=== PATIENT | male | born 1995 | race Caucasian/White ===

== ENCOUNTER 2016-12-15 10:12 | Emergency (ER) | payer BC ==
[~2016-12-15] VITALS: Ht 190.5 cm; Wt 81.6 kg
[~2016-12-15 10:12] MED LIST: VICO5TAB
[2016-12-15] MEDS ORDERED: KETOROLAC 30 MG/ML VIAL (J1885) IV ONE (11:00)
[2016-12-15] MEDS ORDERED: ONDANSETRON 4MG/2ML VIAL (J2405) IV ONE (11:00)
[2016-12-15] MEDS ORDERED: NS 1,000 ML IV ONE (11:15)
[2016-12-15 11:39] LABS: BASO % 0.1 % (0.0-1.0); EOS # 0.1 K/mm3 (0.0-0.50); EOS % 0.6 % (0.0-3.0); LARGE UNSTAINED CELL # 0.1 K/mm3 (0.0-0.4); LARGE UNSTAINED CELL % 0.5 % (0.0-4.0); LYMPH # 0.8 K/mm3 (1.5-6.5); LYMPH % 7.5 % (24.0-44.0); MEAN CORPUSCULAR HEMOGLOBIN 31.1 pg (27.0-33.0); MEAN CORPUSCULAR HGB CONC 34.7 g/dl (32.0-36.5); MEAN CORPUSCULAR VOLUME 89.8 fl (80.0-96.0); MONO # 0.3 K/mm3 (0.0-0.8); MONO % 3.1 % (0.0-5.0); NEUTROPHILS # 9.6 K/mm3 (1.8-7.7); NEUTROPHILS % 88.1 % (36.0-66.0); PLATELET COUNT, AUTOMATED 210 k/mm3 (150-450); RED CELL DISTRIBUTION WIDTH 12.4 % (11.5-14.5); WHITE BLOOD COUNT 10.9 K/mm3 (4.0-10.0)
[2016-12-15 12:10] LABS: ANION GAP 9 MEQ/L (8-16); BLOOD UREA NITROGEN 16 MG/DL (7-18); CALCIUM LEVEL 9.8 MG/DL (8.5-10.1); CARBON DIOXIDE LEVEL 29 MEQ/L (21-32); CHLORIDE LEVEL 103 MEQ/L (98-107); CREATININE FOR GFR 1.08 MG/DL (0.70-1.30); GLOMERULAR FILTRATION RATE > 60.0 (>60); GLUCOSE, FASTING 114 MG/DL (70-105); POTASSIUM SERUM 3.7 MEQ/L (3.5-5.1); SODIUM LEVEL 141 MEQ/L (136-145)
[2016-12-15] MEDS ORDERED: FLOM5CAP PO (12:50)
[2016-12-15] MEDS ORDERED: NORCOTAB PO (12:50)
[2016-12-15] MEDS ORDERED: ZOFR4TAB3 PO (12:50)
[2016-12-15] MEDS ORDERED: NAPR500T PO (12:50)
--- NOTE | 2016-12-15 13:17 | REP ---
CT ABDOMEN AND PELVIS WITHOUT IV CONTRAST: CT abdomen and pelvis performed without oral or IV contrast. Sagittal and coronal reconstruction images performed. The visualized lung bases are clear. The liver, spleen, adrenals and pancreas are grossly unremarkable. There is a 3 mm stone in the distal right ureter causing mild right hydroureteronephrosis. A few tiny hazy intrarenal calcifications are seen in the upper pole of the left kidney, without left hydronephrosis. There is no abdominal aortic aneurysm. There is no adenopathy. There is no free air or free fluid. No bowel wall thickening is seen. The appendix is normal. No pelvic mass is seen. IMPRESSION: There is a 3 mm stone in the distal right ureter causing mild right hydroureteronephrosis. Signed by Kodak Chowdary MD 12/16/2016 05:12 P
[2016-12-15 13:18] VITALS: BP 124/66
== END 2016-12-15 13:43 | disposition home or self-care (01) ==
LOC: M ED 12:06
DX: N13.2 Hydronephrosis with renal and ureteral calculous obstruction (principal); R11.2 Nausea with vomiting, unspecified
CPT/HCPCS: 36415; 74176; 80048; 81001; 85025; 86140; 87086; 96374; 96375; 99283; J1885; J2405

== ENCOUNTER → 2016-12-22 | Outpatient (REF) | payer BC ==
[~2016-12-22] MED LIST changes: +FLOM5CAP PO; +NAPR500T PO; +NORCOTAB PO; +ZOFR4TAB3 PO
== END ==
LOC: M SMT 17:06
PROVIDERS: ATTEND Nurse Practitioner Women's Health
DX: N13.2 Hydronephrosis with renal and ureteral calculous obstruction (principal)

== ENCOUNTER → 2024-09-25 | Outpatient (REF) | payer OTHER ==
[~2024-09-25] MED LIST changes: +FLOM0.4C39 PO; -FLOM5CAP PO; +HYDR-3715 PO; +NAPR-837 PO; -NAPR500T PO; -NORCOTAB PO; +ZOFR4TAB14 PO; -ZOFR4TAB3 PO
== END ==
LOC: M SMT 13:16
PROVIDERS: ATTEND Urology
DX: Z30.2 Encounter for sterilization (principal)

== ENCOUNTER → 2024-11-26 | Outpatient (REF) | payer OTHER ==
[2024-11-26 10:13] LABS: SEMEN APPEARANCE OPAQUE (OPAQUE); SEMEN VISCOSITY VISCOUS (LIQUID)
[2024-11-26 10:14] LABS: WBC CONCENTRATION >1 M/ml (<=1 M/ml)
== END ==
LOC: M SMT 09:05
PROVIDERS: ATTEND Urology
DX: Z30.8 Encounter for other contraceptive management (principal)